=== PATIENT | female | born 1960 | race American Indian/Alaskan Native ===

== ENCOUNTER 2017-11-01 18:11 | Emergency (ER) | payer SELFPAY ==
[2017-11-01] MEDS ORDERED: ASPIRIN PO ONE (18:27)
[2017-11-01 19:15] LABS: BUN/Creatinine Ratio 19; Blood Urea Nitrogen 13 mg/dL (7-17); Calcium 9.2 mg/dL (8.4-10.2); Hemolysis Index 8
[2017-11-01 19:16] LABS: Basophils % (Auto) 0.3 % (0.0-1.8); Eosinophils # (Auto) 0.2 K/mm3 (0.0-0.4); Eosinophils % (Auto) 3.7 % (0.0-4.3); Hematocrit 36.7 % (30.3-42.9); Hemoglobin 12.2 gm/dl (10.1-14.3); Lymphocytes # (Auto) 2.5 K/mm3 (1.2-5.4); Lymphocytes % (Auto) 38.6 % (13.4-35.0); Mean Corpuscular HGB Conc 33 % (30-34); Mean Corpuscular Hemoglobin 29 pg (28-32); Mean Corpuscular Volume 88 fl (79-97); Monocytes # (Auto) 0.4 K/mm3 (0.0-0.8); Platelet Count 283 K/mm3 (140-440); Red Blood Count 4.17 M/mm3 (3.65-5.03); Red Cell Distribution Width 12.3 % (13.2-15.2)
--- NOTE | 2017-11-01 23:47 | Emergency Department Report ---
ED Chest Pain HPI - General Chief Complaint: Chest Pain Stated Complaint: CHEST PAIN Time Seen by Provider: 11/01/17 23:43 Source: patient Mode of arrival: Ambulatory Limitations: No Limitations - History of Present Illness MD Complaint: chest pain -: Gradual Onset: during rest Pain Location: substernal Pain Radiation: none Severity: mild Severity scale (0 -10): 2 Quality: tightness Consistency: constant Improves With: nothing Worsens With: nothing Context: other (Patient said that she inhaled a strong odor at work.) re: dyspnea Other Symptoms: denies: cough Treatments Prior to Arrival: none Aspirin use within the Past 7 Days: (0) No - Related Data On Oral Contraceptives: No Home Medications Medication Instructions Recorded Confirmed Last Taken Atenolol [Tenormin] 1 tab PO DAILY 11/02/17 11/02/17 Unknown Allergies Allergy/AdvReac Type Severity Reaction Status Date / Time aspirin Allergy Unknown Verified 11/02/17 00:44 Heart Score - HEART Score History: Slightly suspicious EKG: Non-specific Age: 45-65 Risk factors: 1-2 risk factors Troponin: < normal limit HEART Score: 3 ED Review of Systems ROS: Stated complaint: CHEST PAIN Other details as noted in HPI Comment: All other systems reviewed and negative Constitutional: denies: chills, fever Eyes: denies: eye pain, vision change ENT: denies: ear pain Respiratory: shortness of breath. denies: cough Cardiovascular: chest pain Endocrine: no symptoms reported Gastrointestinal: denies: abdominal pain, nausea, vomiting, diarrhea Genitourinary: denies: dysuria, frequency Musculoskeletal: denies: back pain, joint swelling Skin: denies: rash, lesions, change in color Neurological: denies: headache, weakness, numbness, paresthesias Psychiatric: denies: anxiety, depression, auditory hallucinations, visual hallucinations Hematological/Lymphatic: denies: easy bleeding, easy bruising ED Past Medical Hx - Past Medical History Hx Hypertension: Yes - Surgical History Past Surgical History?: No - Social History Smoking Status: Never Smoker Substance Use Type: None - Medications Home Medications: Home Medications Medication Instructions Recorded Confirmed Last Taken Type Atenolol [Tenormin] 1 tab PO DAILY 11/02/17 11/02/17 Unknown History ED Physical Exam - General Limitations: No Limitations General appearance: alert, in no apparent distress - Head Head exam: Present: atraumatic, normocephalic, normal inspection - Eye Eye exam: Present: normal appearance, PERRL, EOMI Pupils: Present: normal accommodation - ENT ENT exam: Present: normal exam, normal orophraynx, mucous membranes moist - Neck Neck exam: Present: normal inspection, full ROM. Absent: tenderness - Respiratory Respiratory exam: Present: normal lung sounds bilaterally. Absent: respiratory distress, wheezes, rales, rhonchi, stridor - Cardiovascular Cardiovascular Exam: Present: regular rate, normal rhythm, normal heart sounds - GI/Abdominal GI/Abdominal exam: Present: soft, normal bowel sounds. Absent: distended, tenderness, guarding, rebound - Extremities Exam Extremities exam: Present: full ROM, normal capillary refill - Back Exam Back exam: Present: normal inspection, full ROM. Absent: tenderness - Neurological Exam Neurological exam: Present: alert, oriented X3, CN II-XII intact - Psychiatric Psychiatric exam: Present: normal affect - Skin Skin exam: Present: warm, dry, intact, normal color, rash ED Course Vital Signs 11/01/17 11/02/17 11/02/17 18:24 00:31 00:45 Temperature 98.4 F Pulse Rate 90 77 Respiratory 18 18 Rate Blood Pressure 159/94 O2 Sat by Pulse 100 98 98 Oximetry SHANELL score - Shanell Score Age > 65: (0) No Aspirin use within the Past 7 Days: (0) No 3 or more CAD Risk Factors: (0) No 2 or more Angina events in past 24 hrs: (0) No Known CAD with more than 50% Stenosis: (0) No Elevated Cardiac Markers: (0) No ST Deviation Greater than 0.5mm: (0) No SHANELL Score: 0 ED Medical Decision Making - Lab Data Result diagrams: 11/01/17 18:51 11/01/17 18:51 - EKG Data EKG shows normal: sinus rhythm Rate: normal - EKG Data When compared to previous EKG there are: previous EKG unavailable Interpretation: nonspecific ST-T wave marcie - Radiology Data Radiology results: report reviewed Critical care attestation.: If time is entered above; I have spent that time in minutes in the direct care of this critically ill patient, excluding procedure time. ED Disposition Clinical Impression: Atypical chest pain Disposition: DC-01 TO HOME OR SELFCARE Is pt being admited?: No Does the pt Need Aspirin: Yes Condition: Stable Instructions: Chest Pain (ED) Referrals: MANDIE GUTIÉRREZ MD [Primary Care Provider] - 3-5 Days Forms: Work/School Release Form(ED)
[2017-11-02] MEDS ORDERED: ASPIRIN ONE (00:18)
--- NOTE | 2017-11-02 01:28 | XRay Report ---
FINAL REPORT PROCEDURE: XR CHEST ROUTINE 2V TECHNIQUE: PA and lateral chest radiographs were obtained. CPT 59149 HISTORY: Chest pain COMPARISON: No prior studies are available for comparison. FINDINGS: Heart: Normal. Mediastinum/Vessels: Normal. Lungs/Pleural space: Normal. Bony thorax: No acute osseous abnormality. Other: IMPRESSION: Normal examination.
[2017-11-02 01:29] VITALS: BP 166/90
== END 2017-11-02 01:29 | disposition home or self-care (01) ==
LOC: ED 18:11
DX: R07.89 Other chest pain (principal); R06.02 Shortness of breath; I10 Essential (primary) hypertension; Z88.6 Allergy status to analgesic agent
CPT/HCPCS: 36415; 71046; 80048; 84484; 85025; 93005; 93010

== ENCOUNTER 2019-11-07 12:23 | Emergency (ER) | payer BC ==
[2019-11-07 12:28] VITALS: BP 145/86
--- NOTE | 2019-11-07 12:43 | Emergency Department Report ---
ED ENT HPI - General Chief complaint: Dental/Oral Stated complaint: TOOTH PAIN Time Seen by Provider: 11/07/19 12:34 Source: patient Mode of arrival: Ambulatory Limitations: No Limitations - History of Present Illness Initial comments: This is a 59-year-old female nontoxic, well nourished in appearance, no acute signs of distress presents to the ED with c/o of left upper toothache and some mild swelling 1 week. Patient denies following up with a dentist. Denies any headache. Patient describes toothache as aching level of 8 out of 10. Patient denies any numbness, tingling, fever, chills, headache, stiff neck, abdominal pain, chest pain, shortness of breath. Patient stated allergies to aspirin. MD complaint: tooth pain -: week(s) Location: tooth # 1 - pain here Severity: moderate Severity scale (0 -10): 8 Quality: aching Consistency: constant Improves with: none Worsens with: none Associated Symptoms: gum swelling, toothache. denies: fever, cough, pain with swallowing, sore throat, tinnitus, hearing loss, discharge from ear, rhinorrhea - Related Data Home Medications Medication Instructions Recorded Confirmed Last Taken atenoloL [Tenormin] 1 tab PO DAILY 11/02/17 11/02/17 Unknown Previous Rx's Medication Instructions Recorded Last Taken Type Lisinopril/Hydrochlorothiazide 1 each PO DAILY #30 tablet 11/20/18 Unknown Rx [Zestoretic 20-12.5 mg] Meclizine [Antivert] 25 mg PO TID PRN #30 tablet 11/20/18 Unknown Rx Acetaminophen/Codeine [Tylenol 1 tab PO Q6H PRN #12 tab 11/07/19 Unknown Rx /Codeine # 3 tab] Chlorhexidine Mouthwash [Peridex] 15 ml MM BID #1 bottle 11/07/19 Unknown Rx Clindamycin [Clindamycin CAP] 300 mg PO Q8H #21 cap 11/07/19 Unknown Rx Allergies Allergy/AdvReac Type Severity Reaction Status Date / Time aspirin Allergy Unknown Verified 11/02/17 00:44 ED Dental HPI - General Chief complaint: Dental/Oral Stated complaint: TOOTH PAIN Time Seen by Provider: 11/07/19 12:34 Source: patient Mode of arrival: Ambulatory Limitations: No Limitations - Related Data Home Medications Medication Instructions Recorded Confirmed Last Taken atenoloL [Tenormin] 1 tab PO DAILY 11/02/17 11/02/17 Unknown Previous Rx's Medication Instructions Recorded Last Taken Type Lisinopril/Hydrochlorothiazide 1 each PO DAILY #30 tablet 11/20/18 Unknown Rx [Zestoretic 20-12.5 mg] Meclizine [Antivert] 25 mg PO TID PRN #30 tablet 11/20/18 Unknown Rx Acetaminophen/Codeine [Tylenol 1 tab PO Q6H PRN #12 tab 11/07/19 Unknown Rx /Codeine # 3 tab] Chlorhexidine Mouthwash [Peridex] 15 ml MM BID #1 bottle 11/07/19 Unknown Rx Clindamycin [Clindamycin CAP] 300 mg PO Q8H #21 cap 11/07/19 Unknown Rx Allergies Allergy/AdvReac Type Severity Reaction Status Date / Time aspirin Allergy Unknown Verified 11/02/17 00:44 ED Review of Systems ROS: Stated complaint: TOOTH PAIN Other details as noted in HPI Constitutional: denies: chills, fever Eyes: denies: eye pain, eye discharge, vision change ENT: dental pain. denies: ear pain, throat pain Respiratory: denies: cough, shortness of breath, wheezing Cardiovascular: denies: chest pain, palpitations Endocrine: no symptoms reported Gastrointestinal: denies: abdominal pain, nausea, diarrhea Genitourinary: denies: urgency, dysuria, discharge Musculoskeletal: denies: back pain, joint swelling, arthralgia Skin: denies: rash, lesions Neurological: denies: headache, weakness, paresthesias Psychiatric: denies: anxiety, depression Hematological/Lymphatic: denies: easy bleeding, easy bruising ED Past Medical Hx - Past Medical History Previous Medical History?: Yes Hx Hypertension: Yes - Surgical History Past Surgical History?: No - Social History Smoking Status: Never Smoker Substance Use Type: None - Medications Home Medications: Home Medications Medication Instructions Recorded Confirmed Last Taken Type atenoloL [Tenormin] 1 tab PO DAILY 11/02/17 11/02/17 Unknown History Lisinopril/Hydrochlorothiazide 1 each PO DAILY #30 tablet 11/20/18 Unknown Rx [Zestoretic 20-12.5 mg] Meclizine [Antivert] 25 mg PO TID PRN #30 tablet 11/20/18 Unknown Rx Acetaminophen/Codeine [Tylenol 1 tab PO Q6H PRN #12 tab 11/07/19 Unknown Rx /Codeine # 3 tab] Chlorhexidine Mouthwash [Peridex] 15 ml MM BID #1 bottle 11/07/19 Unknown Rx Clindamycin [Clindamycin CAP] 300 mg PO Q8H #21 cap 11/07/19 Unknown Rx ED Physical Exam - General Limitations: No Limitations General appearance: alert, in no apparent distress - Head Head exam: Present: atraumatic, normocephalic - Expanded ENT Exam Expanded Mouth exam: Present: normal external inspection, tongue normal. Absent: drooling, trismus, muffled voice Teeth exam: Present: dental caries, fractured tooth #, dental tenderness #, gingival enlargement, other (uvula midline. there is some mild facial swelling to left upper mandible area with no induration or flutance.) Throat exam: Positive: normal inspection. Negative: tonsillar erythema, tonsillomegaly, tonsillar exudate, R peritonsillar mass, L peritonsillar mass - Neck Neck exam: Present: normal inspection, full ROM. Absent: tenderness, meningismus, lymphadenopathy - Extremities Exam Extremities exam: Present: normal inspection, full ROM - Back Exam Back exam: Present: normal inspection, full ROM - Neurological Exam Neurological exam: Present: alert, oriented X3, normal gait - Psychiatric Psychiatric exam: Present: normal affect, normal mood - Skin Skin exam: Present: warm, dry, intact, normal color. Absent: rash ED Course Vital Signs 11/07/19 12:27 Temperature 98.1 F Pulse Rate 88 Respiratory 18 Rate Blood Pressure 145/86 O2 Sat by Pulse 100 Oximetry - Reevaluation(s) Reevaluation #1: 11/07/19 12:45 Patient is speaking in full sentences with no signs of distress noted. ED Medical Decision Making - Medical Decision Making This is a 59-year-old female that presents with dental abscess. Patient is stable and was examined by me. There is slight swelling to the left upper mandible. Patient is discharged with clindamycin. He had strict instructions to follow-up with oral maxillary surgeon in 24 hours or if symptoms would worsen to return to emergency room as was possible. Patient is discharged with Ultram, Peridex and Clinda. Patient was instructed not to operate any machinery when taking Ultram due to drowsiness. At time of discharge, the patient does not seem toxic or ill in appearance. No acute signs of distress noted. Patient agrees to discharge treatment plan of care. No further questions noted by the patient. Critical care attestation.: If time is entered above; I have spent that time in minutes in the direct care of this critically ill patient, excluding procedure time. ED Disposition Clinical Impression: Dental abscess Disposition: DC- TO HOME OR SELFCARE Is pt being admited?: No Does the pt Need Aspirin: No Condition: Stable Instructions: Dental Abscess (ED), Acetaminophen/Codeine (By mouth) Additional Instructions: Follow-up with oral maxillary surgeon in 24 hours or if symptoms would worsen to return to emergency room as was possible. [facility]egal [facility] [employer] Address: [facility] [address] [facility] [address], [place] [address] Hours: Thursday Closed Thursday 8AM-1PM, 2-5PM Thursday 8AM-1PM, 2-5PM Thursday 8AM-1PM, 2-5PM 8AM-1PM, 2-5PM Thursday 7AM-2PM Thursday Closed Prescriptions: Clindamycin [Clindamycin CAP] 300 mg PO Q8H #21 cap Chlorhexidine Mouthwash [Peridex] 15 ml MM BID #1 bottle Acetaminophen/Codeine [Tylenol /Codeine # 3 tab] 1 tab PO Q6H PRN #12 tab PRN Reason: Pain , Severe (7-10) Referrals: PRIMARY CAREMD [Primary Care Provider] - 3-5 Days WILL MARINELLI MD [Staff Physician] - 3-5 Days [facility] [Provider Group] - 3-5 Days [facility] [Outside] - 3-5 Days
== END 2019-11-07 13:08 | disposition home or self-care (01) ==
LOC: ED 12:23
DX: K04.7 Periapical abscess without sinus (principal); I10 Essential (primary) hypertension; Z79.899 Other long term (current) drug therapy; Z88.6 Allergy status to analgesic agent
CPT/HCPCS: 99281

== ENCOUNTER 2020-09-23 01:26 | Emergency (ER) | payer BC ==
[2020-09-23 03:10] LABS: Bilirubin,Urine NEG (Negative); Blood,Urine MOD (Negative); Color,Urine Straw (Yellow); Mucus,Urine FEW /HPF; Protein,Urine <15 mg/dL mg/dL (Negative); Urobilinogen,Urine < 2.0 mg/dL (<2.0)
[2020-09-23] MEDS ORDERED: ALUM-MAG HYDROXIDE-SIMETHICONE 200-200-20MG/5ML ORAL LIQD 30 ML PO ONE (03:36)
[2020-09-23] MEDS ORDERED: DICYCLOMINE 20 MG/2 ML INJ IM ONE (03:36)
[2020-09-23] MEDS ORDERED: LIDOCAINE VISCOUS 2% 15 ML ORAL LIQD PO ONE (03:36)
[2020-09-23 03:39] LABS: Basophils % (Auto) 0.6 % (0.0-1.8); Eosinophils # (Auto) 0.2 K/mm3 (0.0-0.4); Eosinophils % (Auto) 4.2 % (0.0-4.3); Hemoglobin 10.9 gm/dl (10.1-14.3); Lymphocytes # (Auto) 2.1 K/mm3 (1.2-5.4); Lymphocytes % (Auto) 39.6 % (13.4-35.0); Mean Corpuscular HGB Conc 33 % (30-34); Mean Corpuscular Volume 88 fl (79-97); Monocytes # (Auto) 0.4 K/mm3 (0.0-0.8); Monocytes % (Auto) 8.5 % (0.0-7.3); Platelet Count 230 K/mm3 (140-440); Red Blood Count 3.77 M/mm3 (3.65-5.03); Red Cell Distribution Width 12.4 % (13.2-15.2)
[2020-09-23 04:02] LABS: Albumin 4.4 g/dL (3.9-5); Calcium 9.1 mg/dL (8.4-10.2)
[2020-09-23] MEDS: FAMOTIDINE 20 MG/2 ML INJ IV ONE ×2 (04:31→05:25)
[2020-09-23] MEDS ORDERED: FAMOTIDINE 20 MG TAB PO ONE (05:18)
[2020-09-23 05:53] VITALS: BP 175/96
--- NOTE | 2020-09-23 06:51 | Emergency Department Report ---
ED Abdominal Pain HPI - General Chief Complaint: Abdominal Pain Stated Complaint: ABDOMINAL PAIN PUI?: No Source: patient Mode of arrival: Ambulatory Limitations: No Limitations - History of Present Illness Initial Comments: Patient is a 60-year-old -[place] female with a history of hypertension who presents to the ED with complaint of acute onset persistent intermittent epigastric pain for the last 3 days. Patient states the epigastric pain radiates to the mid posterior thoracic area. Patient states that she has been taking ibuprofen as needed for pain with no relief. Patient states that the pain gets worse with food or any time if she drinks anything by mouth. Patient states that in the last 12 hours, the pain has been more persistent and worse and she decided come to the ED for evaluation. Patient denies dizziness, syncope, chest pain, shortness of breath, nausea and vomiting or diarrhea, constipation, dysuria, urinary frequency and urgency, cough, sore throat, headache or fever and chills. MD Complaint: abdominal pain (epigastric pain), other (epigastric pain radiates to mid-posterior thoracic area) -: Sudden, days(s) (3) Location: epigastric Radiation: back (mid-posterior thoracic) Migration to: no migration Severity: moderate Severity scale (0 -10): 7 Quality: aching, sharp, burning Consistency: constant Improves With: nothing Worsens With: eating, movement Context: other (possibly GERD) Associated Symptoms: denies other symptoms, nausea, anorexia. denies: diarrhea, fever, chills, constipation, dysuria, hematemesis, hematochezia, melena, hematuria, syncope, other - Related Data Home Medications Medication Instructions Recorded Confirmed Last Taken atenoloL [Tenormin] 1 tab PO DAILY 11/02/17 11/02/17 Unknown Previous Rx's Medication Instructions Recorded Last Taken Type Lisinopril/Hydrochlorothiazide 1 each PO DAILY #30 tablet 11/20/18 Unknown Rx [Zestoretic 20-12.5 mg] Meclizine [Antivert] 25 mg PO TID PRN #30 tablet 11/20/18 Unknown Rx Acetaminophen/Codeine [Tylenol 1 tab PO Q6H PRN #12 tab 11/07/19 Unknown Rx /Codeine # 3 tab] Chlorhexidine Mouthwash [Peridex] 15 ml MM BID #1 bottle 11/07/19 Unknown Rx Clindamycin [Clindamycin CAP] 300 mg PO Q8H #21 cap 11/07/19 Unknown Rx Dicyclomine [Bentyl] 20 mg PO Q6H PRN #30 tablet 09/23/20 Unknown Rx Esomeprazole Magnesium [NexIUM] 40 mg PO QDAY #60 capsule. 09/23/20 Unknown Rx Famotidine [Pepcid] 20 mg PO Q12H #60 tablet 09/23/20 Unknown Rx Ondansetron [Zofran Odt] 4 mg PO Q6HR PRN #15 tab.rapdis 09/23/20 Unknown Rx Allergies Allergy/AdvReac Type Severity Reaction Status Date / Time aspirin Allergy Unknown Verified 11/02/17 00:44 ED Review of Systems ROS: Stated complaint: ABDOMINAL PAIN Other details as noted in HPI Constitutional: denies: chills, fever Eyes: denies: eye pain, eye discharge, vision change ENT: denies: ear pain, throat pain Respiratory: denies: cough, shortness of breath, wheezing Cardiovascular: denies: chest pain, palpitations Endocrine: no symptoms reported Gastrointestinal: abdominal pain (epigastric). denies: nausea, vomiting, diarrh ea Genitourinary: denies: urgency, dysuria, discharge Musculoskeletal: back pain (mid-posterior thoracic area). denies: joint swelling, arthralgia Skin: denies: rash, lesions Neurological: denies: headache, weakness, paresthesias Psychiatric: denies: anxiety, depression Hematological/Lymphatic: denies: easy bleeding, easy bruising ED Past Medical Hx - Past Medical History Previous Medical History?: Yes Hx Hypertension: Yes - Surgical History Past Surgical History?: No - Social History Smoking Status: Never Smoker Substance Use Type: None - Medications Home Medications: Home Medications Medication Instructions Recorded Confirmed Last Taken Type atenoloL [Tenormin] 1 tab PO DAILY 11/02/17 11/02/17 Unknown History Lisinopril/Hydrochlorothiazide 1 each PO DAILY #30 tablet 11/20/18 Unknown Rx [Zestoretic 20-12.5 mg] Meclizine [Antivert] 25 mg PO TID PRN #30 tablet 11/20/18 Unknown Rx Acetaminophen/Codeine [Tylenol 1 tab PO Q6H PRN #12 tab 11/07/19 Unknown Rx /Codeine # 3 tab] Chlorhexidine Mouthwash [Peridex] 15 ml MM BID #1 bottle 11/07/19 Unknown Rx Clindamycin [Clindamycin CAP] 300 mg PO Q8H #21 cap 11/07/19 Unknown Rx Dicyclomine [Bentyl] 20 mg PO Q6H PRN #30 tablet 09/23/20 Unknown Rx Esomeprazole Magnesium [NexIUM] 40 mg PO QDAY #60 capsule.dr 09/23/20 Unknown Rx Famotidine [Pepcid] 20 mg PO Q12H #60 tablet 09/23/20 Unknown Rx Ondansetron [Zofran Odt] 4 mg PO Q6HR PRN #15 tab.rapdis 09/23/20 Unknown Rx ED Physical Exam - General Limitations: No Limitations General appearance: alert, in no apparent distress - Head Head exam: Present: atraumatic, normocephalic, normal inspection - Eye Eye exam: Present: normal appearance, PERRL, EOMI Pupils: Present: normal accommodation - ENT ENT exam: Present: normal exam, normal orophraynx, mucous membranes moist, TM's normal bilaterally, normal external ear exam - Neck Neck exam: Present: normal inspection, full ROM - Respiratory Respiratory exam: Present: normal lung sounds bilaterally. Absent: respiratory distress, wheezes, rales, rhonchi, chest wall tenderness, accessory muscle use, decreased breath sounds - Cardiovascular Cardiovascular Exam: Present: regular rate, normal rhythm, normal heart sounds. Absent: systolic murmur, diastolic murmur, rubs, gallop - GI/Abdominal GI/Abdominal exam: Present: soft, tenderness (Palpable reproducible epigastric tenderness), normal bowel sounds. Absent: guarding, rebound, hyperactive bowel sounds, hypoactive bowel sounds, organomegaly - Extremities Exam Extremities exam: Present: normal inspection, full ROM, normal capillary refill - Back Exam Back exam: Present: normal inspection, full ROM. Absent: tenderness, CVA tenderness (R), CVA tenderness (L), muscle spasm, paraspinal tenderness, vertebral tenderness - Neurological Exam Neurological exam: Present: alert, oriented X3, CN II-XII intact, normal gait, reflexes normal - Psychiatric Psychiatric exam: Present: normal affect, normal mood - Skin Skin exam: Present: warm, dry, intact, normal color. Absent: rash ED Course Vital Signs 09/23/20 09/23/2021 01:33 04:00 05:52 Temperature 97.7 F 97.8 F Pulse Rate 92 H 77 Respiratory 16 20 20 Rate Blood Pressure 155/104 Blood Pressure 175/96 [Left] O2 Sat by Pulse 99 98 98 Oximetry ED Medical Decision Making - Lab Data Result diagrams: 09/23/20 03:15 09/23/20 03:15 - Medical Decision Making This is a 60-year-old -[place] female with a history of hypertension who presents to the ED with complaint of acute onset persistent intermittent epigastric pain for the last 3 days. Patient states the epigastric pain radiates to the mid posterior thoracic area. Patient states that she has been taking ibuprofen as needed for pain with no relief. Patient states that the pain gets worse with food or any time if she drinks anything by mouth. Patient states that in the last 12 hours, the pain has been more persistent and worse and she decided come to the ED for evaluation. In the ED, patient is alert and oriented x3 and is not in distress. Patient was treated for pain and also with antiemetics and antacids. Lab test results were reviewed and are all nonactionable including initial troponin levels. Initial EKG shows normal sinus rhythm with a ventricular rate of [address] or T wave abnormalities. Repeat EKG after 3 hours also shows normal sinus rhythm with a ventricular rate of [address] or T wave abnormalities. The repeat 3-hour troponin level is pending. - Differential Diagnosis GERD; ACS; Gastritis; Gastroenteritis; Pancreatitis; UTI Critical care attestation.: If time is entered above; I have spent that time in minutes in the direct care of this critically ill patient, excluding procedure time. ED Disposition Clinical Impression: Acute epigastric pain GERD (gastroesophageal reflux disease) Qualifiers: Esophagitis presence: without esophagitis Qualified Code(s): K21.9 - Gastro- esophageal reflux disease without esophagitis Disposition: DC-01 TO HOME OR SELFCARE Is pt being admited?: No Does the pt Need Aspirin: No Condition: Stable Instructions: Heartburn, [id number], Abdominal Pain, Adult, [id number], Gastroesophageal Reflux Disease, Adult, [id number], Abdominal Pain (ED) Prescriptions: Dicyclomine [Bentyl] 20 mg PO Q6H PRN #30 tablet PRN Reason: Abdominal pain Esomeprazole Magnesium [NexIUM] 40 mg PO QDAY #60 capsule. Famotidine [Pepcid] 20 mg PO Q12H #60 tablet Ondansetron [Zofran Odt] 4 mg PO Q6HR PRN #15 tab.rapdis PRN Reason: Nausea [facility]errals: [facility]Other] - 3-5 Days Forms: Work/School Release Form(ED) Time of Disposition: 06:51 Print Language: NIGERIAN
== END 2020-09-23 07:45 | disposition home or self-care (01) ==
LOC: ED 01:26
DX: K21.9 Gastro-esophageal reflux disease without esophagitis (principal); R10.13 Epigastric pain; I10 Essential (primary) hypertension; Z79.2 Long term (current) use of antibiotics; Z79.899 Other long term (current) drug therapy; Z88.6 Allergy status to analgesic agent
CPT/HCPCS: 36415; 80053; 81001; 83690; 84484; 85025; 93005; 96372; 99283; J0500

== ENCOUNTER 2021-11-13 06:49 | Emergency (ER) | payer BC ==
--- NOTE | 2021-11-13 07:47 | XRay Report ---
CHEST 2 VIEWS INDICATION / CLINICAL INFORMATION: CHEST PAIN. COMPARISON: Chest x-ray 11/20/2018 FINDINGS: SUPPORT DEVICES: None. HEART / MEDIASTINUM: No significant abnormality. LUNGS / PLEURA: No significant pulmonary or pleural abnormality. No pneumothorax. BONES: No significant osseous abnormality. ADDITIONAL FINDINGS: No significant additional findings. Prior cholecystectomy. IMPRESSION: 1. No active cardiopulmonary disease. Signer Name: Sreekanth Ruiz II, MD Signed: 11/13/2021 7:43 AM Workstation Name: [id number]
[2021-11-13 08:03] LABS: Basophils % (Auto) 0.4 % (0.0-1.8); Eosinophils # (Auto) 0.1 K/mm3 (0.0-0.4); Eosinophils % (Auto) 2.1 % (0.0-4.3); Hematocrit 32.1 % (30.3-42.9); Hemoglobin 10.4 gm/dl (10.1-14.3); Lymphocytes % (Auto) 18.8 % (13.4-35.0); Mean Corpuscular HGB Conc 32 % (30-34); Mean Corpuscular Volume 90 fl (79-97); Monocytes # (Auto) 0.4 K/mm3 (0.0-0.8); Monocytes % (Auto) 7.1 % (0.0-7.3); Platelet Count 238 K/mm3 (140-440); Red Blood Count 3.59 M/mm3 (3.65-5.03); Red Cell Distribution Width 12.2 % (13.2-15.2)
[2021-11-13 08:27] LABS: Alanine Aminotransferase 19 units/L (7-56); Albumin 4.8 g/dL (3.9-5); BUN/Creatinine Ratio 24; Blood Urea Nitrogen 19 mg/dL (7-17); Calcium 9.7 mg/dL (8.4-10.2); Hemolysis Index 5
[2021-11-13] MEDS ORDERED: LIDOCAINE VISCOUS 2% 15 ML ORAL LIQD PO ONE (12:54)
[2021-11-13] MEDS ORDERED: ALUM-MAG HYDROXIDE-SIMETHICONE 200-200-20MG/5ML ORAL LIQD 30 ML PO ONE (12:54)
[2021-11-13] MEDS ORDERED: PHENobarbital 15 MG TAB PO SCH (13:00)
--- NOTE | 2021-11-13 13:00 | Emergency Department Report ---
ED Chest Pain HPI - General Chief Complaint: Chest Pain Stated Complaint: CHEST PAIN Time Seen by Provider: 11/13/21 12:34 Source: patient Mode of arrival: Ambulatory Limitations: No Limitations - History of Present Illness Initial Comments: 61-year-old female with a history of hypertension currently on antihypertensive lisinopril and amlodipine who now presents with epigastric pain radiating to both sides of her neck and middle of the chest described as burning sensation that started last night. Patient denies any history of GERD but has cholecyst ectomy done in about 11 months ago January last year. She however reports some chronic epigastric discomfort following the surgery. Patient is from [facility] and low of spicy food. Patient denies any fever or chills. Patient also denies any shortness of breath or palpitation. Patient rated the discomfort as 7/10 in severity when the pain hits. No other modifying or associated factors reported. Severity scale (0 -10): 3 - Related Data Home Medications Medication Instructions Recorded Confirmed Last Taken atenoloL [Tenormin] 1 tab PO DAILY 11/02/17 11/02/17 Unknown Previous Rx's Medication Instructions Recorded Last Taken Type Lisinopril/Hydrochlorothiazide 1 each PO DAILY #30 tablet 11/20/18 Unknown Rx [Zestoretic 20-12.5 mg] Meclizine [Antivert] 25 mg PO TID PRN #30 tablet 11/20/18 Unknown Rx Acetaminophen/Codeine [Tylenol 1 tab PO Q6H PRN #12 tab 11/07/19 Unknown Rx /Codeine # 3 tab] Chlorhexidine Mouthwash [Peridex] 15 ml MM BID #1 bottle 11/07/19 Unknown Rx Clindamycin [Clindamycin CAP] 300 mg PO Q8H #21 cap 11/07/19 Unknown Rx Dicyclomine [Bentyl] 20 mg PO Q6H PRN #30 tablet 09/23/20 Unknown Rx Esomeprazole Magnesium [NexIUM] 40 mg PO QDAY #60 capsule. 09/23/20 Unknown Rx Famotidine [Pepcid] 20 mg PO Q12H #60 tablet 09/23/20 Unknown Rx Ondansetron [Zofran Odt] 4 mg PO Q6HR PRN #15 tab.rapdis 09/23/20 Unknown Rx Allergies Allergy/AdvReac Type Severity Reaction Status Date / Time aspirin Allergy Unknown Verified 11/02/17 00:44 Heart Score - HEART Score History: Slightly suspicious EKG: Normal Age: 45-65 Risk factors: 1-2 risk factors Troponin: < normal limit HEART Score: 2 - EKG Read Time Time EKG Completed: 06:59 EKG Read Time: 12:59 - Critical Actions Critical Actions: 0-3 pts:0.9-1.7%risk of adverse cardiac event.Candidate for discharge ED Review of Systems ROS: Stated complaint: CHEST PAIN Other details as noted in HPI Comment: All other systems reviewed and negative Cardiovascular: chest pain Gastrointestinal: abdominal pain ED Past Medical Hx - Past Medical History Previous Medical History?: Yes Hx Hypertension: Yes - Surgical History Past Surgical History?: Yes Hx Cholecystectomy: Yes - Social History Smoking Status: Never Smoker - Medications Home Medications: Home Medications Medication Instructions Recorded Confirmed Last Taken Type atenoloL [Tenormin] 1 tab PO DAILY 11/02/17 11/02/17 Unknown History Lisinopril/Hydrochlorothiazide 1 each PO DAILY #30 tablet 11/20/18 Unknown Rx [Zestoretic 20-12.5 mg] Meclizine [Antivert] 25 mg PO TID PRN #30 tablet 11/20/18 Unknown Rx Acetaminophen/Codeine [Tylenol 1 tab PO Q6H PRN #12 tab 11/07/19 Unknown Rx /Codeine # 3 tab] Chlorhexidine Mouthwash [Peridex] 15 ml MM BID #1 bottle 11/07/19 Unknown Rx Clindamycin [Clindamycin CAP] 300 mg PO Q8H #21 cap 11/07/19 Unknown Rx Dicyclomine [Bentyl] 20 mg PO Q6H PRN #30 tablet 09/23/20 Unknown Rx Esomeprazole Magnesium [NexIUM] 40 mg PO QDAY #60 capsule.dr 09/23/20 Unknown Rx Famotidine [Pepcid] 20 mg PO Q12H #60 tablet 09/23/20 Unknown Rx Ondansetron [Zofran Odt] 4 mg PO Q6HR PRN #15 tab.rapdis 09/23/20 Unknown Rx ED Physical Exam - General Limitations: No Limitations General appearance: alert, in no apparent distress - Head Head exam: Present: atraumatic, normal inspection - Eye Eye exam: Present: normal appearance - ENT ENT exam: Present: normal exam, normal orophraynx - Neck Neck exam: Present: normal inspection, full ROM - Respiratory Respiratory exam: Present: normal lung sounds bilaterally. Absent: respiratory distress, wheezes, accessory muscle use - Cardiovascular Cardiovascular Exam: Present: regular rate, normal rhythm, normal heart sounds - GI/Abdominal GI/Abdominal exam: Present: soft, tenderness (Epigastrium), normal bowel sounds. Absent: distended - Extremities Exam Extremities exam: Present: normal inspection, full ROM, normal capillary refill - Back Exam Back exam: Present: normal inspection, CVA tenderness (L). Absent: CVA tenderness (R) - Neurological Exam Neurological exam: Present: alert, altered, oriented X3 - Psychiatric Psychiatric exam: Present: normal affect, normal mood ED Course Vital Signs 11/13/21 11/13/21 06:52 10:53 Temperature 97.8 F Pulse Rate 89 88 Respiratory 18 16 Rate Blood Pressure 162/87 143/80 O2 Sat by Pulse 99 98 Oximetry - Reevaluation(s) Reevaluation #1: 11/13/21 13:01 Here with burning chest pain radiating to medial of the chest and both sides of the neck since last night --noted with epigastric tenderness with history of cholecystectomy. Considering this patient age patient has a SHANELL score of 2 with STEMI score of 0--so we will go ahead and rule out NE with troponin and EKG--with a trial of GI cocktail that I believe will have this patient's symptoms concerning the epigastric tenderness. I believe this is likely gastritis--we will continue to monitor progress. Reevaluation #2: 11/13/21 14:47 Patient reports feeling much better after the GI cocktail and ready to go home. All labs reviewed to be within normal limit and reassuring except slightly elevated glucose at 138, and BUN at 19 with low sodium at 136. We will discharge patient home with warning about the blood sugar and to follow-up with her primary doctor in the next 3 to 5 days for progress. We will also discharge home on omeprazole and sucrafate-- SHANELL score - Shanell Score Age > 65: (0) No Aspirin use within the Past 7 Days: (0) No 3 or more CAD Risk Factors: (0) No 2 or more Angina events in past 24 hrs: (0) No Known CAD with more than 50% Stenosis: (0) No Elevated Cardiac Markers: (0) No ST Deviation Greater than 0.5mm: (0) No SHANELL Score: 0 ED Medical Decision Making - Lab Data Result diagrams: 11/13/21 07:45 11/13/21 07:45 - EKG Data -: EKG Interpreted by Me EKG shows normal: sinus rhythm Rate: normal - EKG Data Interpretation: no acute changes, nonspecific ST-T wave marcie 11/13/21 13:03 Normal sinus rhythm at a rate of [address] abnormality and no ST elevation or depression noted Critical care attestation.: If time is entered above; I have spent that time in minutes in the direct care of this critically ill patient, excluding procedure time. ED Disposition Clinical Impression: Epigastric abdominal pain Chest pain Qualifiers: Chest pain type: unspecified Qualified Code(s): R07.9 - Chest pain, unspecified GERD (gastroesophageal reflux disease) Qualifiers: Esophagitis presence: with esophagitis Esophagitis bleeding: unspecified whether hemorrhage Qualified Code(s): K21.00 - Gastro-esophageal reflux disease with esophagitis, without bleeding Disposition: 01 HOME / SELF CARE / HOMELESS Is pt being admited?: No Does the pt Need Aspirin: No Condition: Stable Instructions: Nonspecific Chest Pain, Adult, [id number], Food Choices for Gastroesophageal Reflux Disease, Adult, Heartburn, [id number], Preventing Gastrointestinal Problems During Exercise Additional Instructions: Avoid heavy and fatty meals as those could worsening your symptoms Take your two different medications as prescribed to help your symptoms Call and schedule a follow up with your doctor in the next 3-5 days for progress After completing your medications in 30 days if your symptoms is not improved call and follow up with your doctor and discuss about likely getting (EGD) a procedure to look at the esophagus and stomach with a camera for further evaluation and treatment. In the mean time if your symptoms worsen please do not hesitate to call or return to ED for reevaluation and treatment Referrals: PRIMARY MD VEENA [Primary Care Provider] - 3-5 Days Forms: Work/School Release Form(ED) Time of Disposition: 14:55
[2021-11-13 13:37] LABS: INR 0.87 (0.87-1.13)
[2021-11-13 13:38] LABS: Partial Thromboplastin Time 31.4 Sec. (24.2-36.6)
--- NOTE | 2021-11-13 13:48 | XRay Report ---
CHEST 1 VIEW INDICATION: chest pain. COMPARISON: 11/13/2021 FINDINGS: Support devices: None. Heart: Within normal limits. Lungs/Pleura: No acute air space or interstitial disease. Additional findings: None. IMPRESSION: No acute findings. Signer Name: Rusty Quan Jr, MD Signed: 11/13/2021 1:44 PM Workstation Name: [id number]
[2021-11-13 15:21] VITALS: BP 141/78
--- NOTE | 2021-11-14 10:47 | Electrocardiograph Report ---
[facility] Test Date: 2021-11-13 Test Time: 06:59:50 Pat Name: FRANK ORTIZ Department: Room: Gender: F Diving Instructor: NANCY : 1960 Requested By: ED DOC Order Number: [id number] Reading MD: Arley Painting Measurements Intervals [place] Rate: 82 P: 47 ME: 146 QRS: 44 QRSD: 81 T: 90 QT: 358 QTc: 420 Interpretive Statements Sinus rhythm Nonspecific T abnormalities, lateral leads No previous ECG available for comparison Electronically Signed On 11-14-2021 10:46:52 EDT by Arley Painting
== END 2021-11-13 15:31 | disposition home or self-care (01) ==
LOC: ED 06:49
DX: R07.9 Chest pain, unspecified (principal); K21.9 Gastro-esophageal reflux disease without esophagitis; Z88.6 Allergy status to analgesic agent
CPT/HCPCS: 36415; 71045; 71046; 80053; 83690; 83880; 84443; 84484; 85025; 85610; 85730; 93005; 99284